=== PATIENT | female | born 1960 | race Caucasian/White ===

== ENCOUNTER 2018-01-08 17:40 | Emergency (ER) | payer OTHER ==
[~2018-01-08] VITALS: Ht 162.6 cm; Wt 61.5 kg
[2018-01-08 17:54] VITALS: TEMP 36.9; Ht 162.6 cm; Wt 61.5 kg
[2018-01-08] MEDS ORDERED: IBUP-1428 PO (18:15)
--- NOTE | 2018-01-08 18:35 | DIAGNOSTIC IMAGING REPORT ---
L FOOT MIN 3 VIEWS ROUTINE HISTORY: 57 years-old Female L distal foot crush type injury. Pain acute left foot pain COMPARISON: None available TECHNIQUE: 3 views of the left foot FINDINGS: Mild degenerative changes about the interphalangeal joints and first MTP joint with mild forefoot soft tissue swelling. Small plantar enthesophyte about the calcaneus. Bones appear mildly demineralized. There is no acute fracture, dislocation or opaque foreign body. IMPRESSION: Mild soft tissue swelling without fracture. The above report was generated using voice recognition software. It may contain grammatical, syntax or spelling errors. Electronically signed by: Adrian Peoples M.D. 01/08/2018 6:34 PM Dictated Date/Time: 01/08/2018 6:31 PM
--- NOTE | 2018-01-08 19:05 | EMERGENCY ROOM VISIT NOTE ---
History First contact with patient: 18:00 Chief Complaint: FOOT PAIN Stated Complaint: BROKEN TOES AND/OR FOOT - L History of Present Illness The patient is a 57 year old female who presents to the Emergency Room via private vehicle with complaints of "broken toes/foot". The patient states that earlier today around 4:45 PM she was at home in a chair in the garage when it slipped, fell striking the top of her left foot. She notes pain rated as a 0/ 10 at rest but notes with movement it is excruciating. She notes some numbness in the dorsal aspect of the foot. She has been icing this. She also took 800 mg ibuprofen. Review of Systems A complete 6-point Review of Systems was discussed with the patient, with pertinent positives and negatives listed in the History of Present Illness. All remaining Review of Systems questions can be considered negative unless otherwise specified. Past Medical/Surgical History Noncontributory. Family History Noncontributory. Social History Smoking Status: Never Smoker Alcohol Use: none Drug Use: none Marital Status: Housing Status: lives with family Occupation Status: employed Current/Historical Medications Scheduled PRN Ibuprofen (Motrin), 800 MG PO for Pain Physical Exam Vital Signs Date Time Temp Pulse Resp B/P (MAP) Pulse Ox O2 Delivery O2 Flow Rate FiO2 01/08/18 19:32 80 16 117/67 98 01/08/18 17:54 36.9 81 20 149/97 100 Room Air Physical Exam VITAL SIGNS - Vital signs and nursing notes were reviewed. Stable. GENERAL -57-year-old female appearing her stated age who is in no acute distress. Communicates well with provider and answers questions appropriately. SKIN - Without rashes. No meningeal or petechial rash. There is some erythema noted over the anterior superior aspect of the left distal metatarsals extending into the toes. No open fracture or deformity noted EXTREMITIES - No clubbing or peripheral cyanosis. No pretibial edema present. Tenderness to palpation overlying the distal metatarsals of the left foot into the toes. Decreased range of motion secondary to pain noted. She is neurovascularly intact in this region. Medical Decision & Procedures ER Provider Diagnostic Interpretation: L FOOT MIN 3 VIEWS ROUTINE HISTORY: 57 years-old Female L distal foot crush type injury. Pain acute left foot pain COMPARISON: None available TECHNIQUE: 3 views of the left foot FINDINGS: Mild degenerative changes about the interphalangeal joints and first MTP joint with mild forefoot soft tissue swelling. Small plantar enthesophyte about the calcaneus. Bones appear mildly demineralized. There is no acute fracture, dislocation or opaque foreign body. IMPRESSION: Mild soft tissue swelling without fracture. The above report was generated using voice recognition software. It may contain grammatical, syntax or spelling errors. Electronically signed by: Adrian Peoples M.D. 01/08/2018 6:34 PM Dictated Date/Time: 01/08/2018 6:31 PM Medical Decision Patient was seen and evaluated as above in room D6. Review was performed of nursing notes and vital signs. After obtaining a thorough history and physical examination the above work up was performed. She presents to us today status post foot trauma. She is nontoxic on exam. She declined pain medication. Ice packs and an x-ray were obtained. Results as above. No fracture. She was educated upon the risk of occult fracture. [place] wrap and crutches were provided. She is to follow with orthopedics or return with worsening. The patient was educated upon management, had questions answered prior to discharge , and was discharged home in good condition. In the evaluation and treatment of this patient, the following differential diagnoses were considered: Ankle Fracture, Ankle Sprain, Distal Fibula Fracture , Distal Tibia Fracture, Foot Fracture, [place] Fracture. Impression Primary Impression: Foot pain Departure Information Dispostion Home / Self-Care Condition GOOD Referrals Lubna Ferraro D.O. (PCP) Geovanni Artis M.D. Patient Instructions [facility] Additional Instructions You have been treated in the Emergency Department for a left foot injury. For pain control, you can use the following [id number] medicines: - Regular strength (325mg/tab) Tylenol (acetaminophen) 2 tabs every 4-6 hours as needed. Do not exceed 12 tablets in a 24 hour period. Avoid taking more than 3 grams (3000 mg) of Tylenol per day. This includes any other sources of acetaminophen you may take on a regular basis. - Regular strength (200 mg/tab) Advil (ibuprofen) 1-2 tabs every 4-6 hours as needed. Do not exceed a dose of 3200 mg per day. If this is a recent injury (<24 hrs), ice can be applied to the area of pain for the first 3 days to help decrease pain and inflammation. You have been provided the number for an Orthopaedic Surgeon. You should call this number as soon as possible to establish a follow-up visit from today's Emergency Department visit. Keep the foot brace/splint in place until cleared by Orthopedics. Use the crutches you have been provided to keep ALL weight off of the foot until weight bearing is tolerable. Return to the Emergency Department if your current symptoms worsen despite treatment course outlined above, or if you develop any of the following symptoms : intractable pain despite aforementioned treatment course or new onset of numbness or tingling of the foot.
[2018-01-08 19:32] VITALS: BP 117/67; PULSE 80; O2SAT 98
== END 2018-01-08 19:33 | disposition home or self-care (01) ==
LOC: C.EDB 17:40 → C.EDD 19:33
DX: M79.672 Pain in left foot (principal); W22.8XXA Striking against or struck by other objects, initial encounter; Y92.59 Other trade areas as the place of occurrence of the external cause